=== PATIENT | female | born 1955 | race Caucasian/White ===

== ENCOUNTER → 2016-08-03 | Outpatient (CLI) | payer MEDICARE, OTHER | LOC: ECHO 10:48 | DX: I11.0 Hypertensive heart disease with heart failure (principal); I50.41 Acute combined systolic (congestive) and diastolic (congestive) heart failure; K58.0 Irritable bowel syndrome with diarrhea; R63.5 Abnormal weight gain; I35.0 Nonrheumatic aortic (valve) stenosis | CPT/HCPCS: ECHO; 93306 ==

== ENCOUNTER 2021-05-26 11:38 | Emergency (ER) | payer MEDICARE, OTHER ==
[~2021-05-26 11:38] MED LIST changes: -ELIQUIS 5 MG TAB5 MG PO
[2021-05-26 12:31] LABS: HEMOGLOBIN 14.8 gm/dl (12.3-15.3); RED BLOOD COUNT 4.7 M/UL (4.00-5.10); WHITE BLOOD COUNT 8.3 K/UL (4.5-11.0)
[2021-05-26 13:17] LABS: BUN/CREATININE RATIO 4 (0-10)
[2021-05-26] MEDS ORDERED: ELIQUIS 5 MG TAB5 MG PO (16:39)
== END 2021-05-26 17:35 | disposition home or self-care (01) ==
LOC: ER1 11:38
PROVIDERS: Physician Assistant
DX: I82.402 Acute embolism and thrombosis of unspecified deep veins of left lower extremity (principal); E87.6 Hypokalemia; F17.200 Nicotine dependence, unspecified, uncomplicated; I10 Essential (primary) hypertension; K21.9 Gastro-esophageal reflux disease without esophagitis
CPT/HCPCS: 80053; 82550; 82553; 84484; 85025; 85379; 85610; 85730; 99284; Q9967

== ENCOUNTER → 2021-05-26 | Outpatient (CLI) | payer MEDICARE, OTHER ==
[~2021-05-26] MED LIST: ACTEMRA162 MG/0.9 SQ; ANORO ELLIPTA1 EACH INH; CREON DR 36,001 EACH PO; DEXILANT60 MG PO; ELIQUIS 5 MG TAB5 MG PO; GABAPENTIN800 MG PO; MEDROL4 MG PO; NEURONTIN 400400 MG PO; PAXIL20 MG PO; PERCOCET 10-321 EACH PO; ROPINIROLE HCL1 MG PO; SINGULAIR10 MG PO; TOPAMAX50 MG PO; TOVIAZ4 MG PO; VENTOLIN HFA 66.7 GM INH; VITAMIN D250000 UNIT PO; VOLTAREN100 GM TP; ZANAFLEX4 MG PO; ZANTAC150 MG PO
== END ==
LOC: KOH-I 08:19
DX: M79.662 Pain in left lower leg (principal); I82.4Z2 Acute embolism and thrombosis of unspecified deep veins of left distal lower extremity
CPT/HCPCS: 93971

== ENCOUNTER 2021-11-27 16:06 | Emergency (ER) | payer MEDICARE, OTHER ==
[~2021-11-27 16:06] MED LIST changes: +ELIQUIS 5 MG TAB5 MG PO
== END 2021-11-27 23:00 | disposition left against medical advice (07) ==
LOC: ER1 16:06
DX: S00.81XA Abrasion of other part of head, initial encounter (principal); S60.811A Abrasion of right wrist, initial encounter; F17.200 Nicotine dependence, unspecified, uncomplicated; J44.9 Chronic obstructive pulmonary disease, unspecified; Z86.718 Personal history of other venous thrombosis and embolism; W01.10XA Fall on same level from slipping, tripping and stumbling with subsequent striking against unspecified object, initial encounter
CPT/HCPCS: 70450; 70486; 72125; 72128; 72131; 72170; 73030; 73080; 73110; 73562; 99283